=== PATIENT | male | born 1935 | race Caucasian/White ===

== ENCOUNTER 2016-07-21 08:53 | Observation (INO) | payer OTHER ==
[~2016-07-21] VITALS: Ht 182.9 cm; Wt 126.1 kg
[~2016-07-21 08:53] MED LIST: ALLEGRA ALLERG180 MG PO; ALLEGRA180 MG PO; AMLODIPINE BESYL5 MG PO; ASPIRIN81 M1 PO; Ecotrin PO; Flomax PO; JALYN 0.5-0.41 EACH PO; LO-DOSE ASPIRIN81 M1 PO; MACROBID100 MG PO; MECLIZINE HCL12.5 M1 PO; MUCINEX1200 MG PO; Norvasc PO; PLAVIX75 MG PO; Vicodin,Lortab 5/500 PO; ZINC50 M1 PO; ZOCOR20 MG PO; Zocor PO
[2016-07-21 10:29] LABS: EOSINOPHIL (%) 1.5 % (0-5); EOSINOPHIL COUNT 0.1 K/uL (0-0.3); HEMATOCRIT 48.8 % (38.0-50.0); IMMATURE GRANULOCYTE (%) 1.2 % (0.0-0.7); IMMATURE GRANULOCYTE COUNT 0.1 K/uL; INSTRUMENT ABS NEUTROPHIL CT 6.7 K/uL; LYMPHOCYTE COUNT 1.7 K/uL (1.0-2.8); MCH 29.4 PG (29.0-34.0); MCHC 32.4 G/DL (30.0-36.0); MCV 90.7 FL (86-99); MEAN PLAT.VOLUME 9.9 uM^3 (9.0-12.4); MONOCYTE (%) 8.4 % (3-12); MONOCYTE COUNT 0.8 K/uL (0-0.8); NEUTROPHIL (%) 70.3 % (45-76); NEUTROPHIL COUNT 6.7 K/uL (1.8-6.4); PLATELET COUNT 248 K/uL (156-360); RBC DIS.WIDTH-CV 12.1 % (11.8-14.6); RBC DIS.WIDTH-SD 40.1 % (39-53); RED BLOOD COUNT 5.38 M/uL (4.00-5.50); WHITE BLOOD COUNT 9.5 K/uL (4.1-10.2)
[2016-07-21 10:39] LABS: INTER. NORMALIZED RATIO 1.1; PROTHROMBIN TIME 10.7 (9.2-11.2); PTT 29.6 (25-32)
[2016-07-21 10:43] LABS: CHLORIDE 102 mEq/L (99-109); POTASSIUM 4.8 mEq/L (3.7-5.4); SODIUM 138 mEq/L (136-147)
[2016-07-21 10:45] LABS: GLUCOSE 149 mg/dL (70-99)
[2016-07-21 10:46] LABS: ANION GAP 10 MEQ/L (2-14)
[2016-07-21 10:49] LABS: GFR ESTIMATE (CALCULATED) > 59 mL/min/
[2016-07-21 10:50] LABS: UREA NITROGEN (BUN) 17 mg/dL (9-23)
[2016-07-21 10:51] LABS: TROP-I INTERPRETATION NEGATIVE; TROPONIN-I < 0.01 ng/mL (0.0-0.30)
[2016-07-21] MEDS ORDERED: PROSCAR5 MG PO (11:21)
[2016-07-21] MEDS ORDERED: FLOMAX0.4 MG PO (11:22)
[2016-07-21] MEDS ORDERED: COUGH DROPS1 EAC1 MM (11:23)
[2016-07-21] MEDS ORDERED: VICKS VAPOINHA1 EACH NS (11:24)
[2016-07-21 13:57] VITALS: BP 149/84
[2016-07-21 16:24] VITALS: BP 136/78
[2016-07-21 20:00] VITALS: BP 133/66
[2016-07-22] VITALS: BP 135/73
[2016-07-22 04:00] VITALS: BP 140/77
[2016-07-22 06:44] LABS: Estimated Average Glucose 128 mg/dL (70-123); HEMOGLOBIN A1c (GLYCOHEMOGLOB) 6.1 % HGB (Below 5.7)
[2016-07-22 07:24] VITALS: BP 145/81
== END 2016-07-22 10:38 | disposition home or self-care (01) ==
LOC: EME 08:53 → 5WEST 11:20 → EDOF 11:20 → 5WEST 13:48
PROVIDERS: Emergency Medicine; Hospitalist
DX: G45.9 Transient cerebral ischemic attack, unspecified (principal); I10 Essential (primary) hypertension; E78.5 Hyperlipidemia, unspecified; Z86.73 Personal history of transient ischemic attack (TIA), and cerebral infarction without residual deficits; Z87.891 Personal history of nicotine dependence; Z88.0 Allergy status to penicillin
CPT/HCPCS: 70450; 70551; 71010; 80048; 83036; 84484; 85025; 85610; 85730; 93005; 94660; 99281; 99285; G0378; J2060

== ENCOUNTER 2017-09-29 20:29 | Inpatient (IN) | payer OTHER ==
[~2017-09-29] VITALS: Ht 182.9 cm; Wt 127.6 kg
[2017-09-29 21:15] LABS: HEMATOCRIT 38.8 % (38.0-50.0); HEMOGLOBIN 12.7 G/DL (12.5-16.6); MCH 28.8 PG (29.0-34.0); MCHC 32.7 G/DL (30.0-36.0); PLATELET COUNT 169 K/uL (156-360); RBC DIS.WIDTH-CV 12.5 % (11.8-14.6); RBC DIS.WIDTH-SD 40.2 % (39-53); RED BLOOD COUNT 4.41 M/uL (4.00-5.50); WHITE BLOOD COUNT 16.7 K/uL (4.1-10.2)
[2017-09-29 21:24] LABS: ALBUMIN 3.4 G/DL (3.2-4.8); CHLORIDE 101 MEQ/L (99-109); DIRECT BILIRUBIN 0.8 mg/dL (0.0-0.3); POTASSIUM 4.2 MEQ/L (3.7-5.4); SODIUM 135 MEQ/L (136-147); TOTAL BILIRUBIN 2.2 MG/DL (0.0-1.0)
[2017-09-29 21:30] LABS: ALKALINE PHOSPHATASE 53 IU/L (3-129); ALT (GPT) 9 IU/L (3-49); AST (GOT) 19 IU/L (2-34); CREATININE 2.5 MG/DL (0.6-1.3); GFR ESTIMATE (CALCULATED) 27 mL/min/ (58.99-99999); GLUCOSE 186 mg/dL (70-99); TOTAL PROTEIN 5.9 G/DL (6.4-8.3); UREA NITROGEN (BUN) 36 mg/dL (9-23)
[2017-09-29 21:34] LABS: TROP-I INTERPRETATION NEGATIVE; TROPONIN-I 0.04 ng/mL (0.0-0.30)
[2017-09-29 22:05] VITALS: BP 143/67
[2017-09-30] VITALS (7 sets, daily range): BP systolic 109–159; BP diastolic 58–76
[2017-09-30 05:27] LABS: APPEARANCE CLOUDY ((CLEAR)); BILIRUBIN NEGATIVE; BLOOD MODERATE; COLOR AMBER ((YELLOW)); GLUCOSE (STRIP) NEGATIVE; KETONES NEGATIVE; LEUKOCYTES SMALL; NITRITE NEGATIVE; PROTEIN (STRIP) 100; SPECIFIC GRAVITY 1.024 (1.000-1.030); UROBILINOGEN 0.2 MG/DL (0.2-1.0)
[2017-09-30 05:44] LABS: RED BLOOD CELLS TNTC /HPF (0-5)
[2017-09-30 05:45] LABS: UCUL ADDED? YES
[2017-09-30 06:38] LABS: BASOPHIL (%) 0.1 % (0-1); EOSINOPHIL (%) 0 % (0-5); HEMOGLOBIN 12.3 G/DL (12.5-16.6); IMMATURE GRANULOCYTE (%) 0.6 % (0.0-0.7); LYMPHOCYTE (%) 7.9 % (15-42); LYMPHOCYTE COUNT 1.2 K/uL (1.0-2.8); MCH 28.8 PG (29.0-34.0); MCHC 32.4 G/DL (30.0-36.0); MONOCYTE (%) 8.8 % (3-12); MONOCYTE COUNT 1.4 K/uL (0-0.8); NEUTROPHIL (%) 82.6 % (45-76); PLATELET COUNT 180 K/uL (156-360); RBC DIS.WIDTH-CV 12.6 % (11.8-14.6); RBC DIS.WIDTH-SD 41.2 % (39-53); RED BLOOD COUNT 4.27 M/uL (4.00-5.50); WHITE BLOOD COUNT 15.7 K/uL (4.1-10.2)
[2017-09-30 06:57] LABS: CHLORIDE 101 MEQ/L (99-109); CREATININE 2.3 MG/DL (0.6-1.3); GFR ESTIMATE (CALCULATED) 29 mL/min/ (58.99-99999); GLUCOSE 155 mg/dL (70-99); POTASSIUM 4.4 MEQ/L (3.7-5.4); SODIUM 137 MEQ/L (136-147); UREA NITROGEN (BUN) 39 mg/dL (9-23)
[2017-10-01 05:32] VITALS: BP 155/80
[2017-10-01 07:51] VITALS: BP 164/89
[2017-10-01 07:53] LABS: BASOPHIL (%) 0.1 % (0-1); EOSINOPHIL (%) 0.1 % (0-5); HEMATOCRIT 38.3 % (38.0-50.0); HEMOGLOBIN 12.6 G/DL (12.5-16.6); IMMATURE GRANULOCYTE (%) 0.9 % (0.0-0.7); LYMPHOCYTE (%) 5.7 % (15-42); LYMPHOCYTE COUNT 0.9 K/uL (1.0-2.8); MCHC 32.9 G/DL (30.0-36.0); MONOCYTE (%) 9.4 % (3-12); MONOCYTE COUNT 1.5 K/uL (0-0.8); NEUTROPHIL (%) 83.8 % (45-76); NEUTROPHIL COUNT 13.1 K/uL (1.8-6.4); PLATELET COUNT 177 K/uL (156-360); RBC DIS.WIDTH-CV 12.5 % (11.8-14.6); RBC DIS.WIDTH-SD 40.6 % (39-53); RED BLOOD COUNT 4.35 M/uL (4.00-5.50); WHITE BLOOD COUNT 15.7 K/uL (4.1-10.2)
[2017-10-01 08:16] LABS: CHLORIDE 101 MEQ/L (99-109); GFR ESTIMATE (CALCULATED) 39 mL/min/ (58.99-99999); GLUCOSE 159 mg/dL (70-99); PHOSPHORUS 1.7 mg/dL (2.5-4.9); SODIUM 135 MEQ/L (136-147); UREA NITROGEN (BUN) 38 mg/dL (9-23); URIC ACID 8.3 mg/dL (3.1-9.2)
[2017-10-01 08:17] LABS: CREATININE 1.8 MG/DL (0.6-1.3)
[2017-10-01 12:19] VITALS: BP 155/78
[2017-10-01 17:08] VITALS: BP 132/61
[2017-10-01 19:56] VITALS: BP 143/75
[2017-10-02 00:21] VITALS: BP 147/76
[2017-10-02 06:50] LABS: BASOPHIL (%) 0.2 % (0-1); EOSINOPHIL (%) 0.1 % (0-5); HEMATOCRIT 36.6 % (38.0-50.0); HEMOGLOBIN 12.2 G/DL (12.5-16.6); IMMATURE GRANULOCYTE (%) 0.7 % (0.0-0.7); LYMPHOCYTE (%) 6.2 % (15-42); MCH 29.5 PG (29.0-34.0); MCHC 33.3 G/DL (30.0-36.0); MCV 88.6 FL (86-99); MONOCYTE (%) 9.3 % (3-12); MONOCYTE COUNT 1.6 K/uL (0-0.8); NEUTROPHIL (%) 83.5 % (45-76); PLATELET COUNT 186 K/uL (156-360); RBC DIS.WIDTH-CV 12.7 % (11.8-14.6); RBC DIS.WIDTH-SD 41.5 % (39-53); RED BLOOD COUNT 4.13 M/uL (4.00-5.50); WHITE BLOOD COUNT 16.7 K/uL (4.1-10.2)
[2017-10-02 07:23] LABS: CHLORIDE 102 MEQ/L (99-109); CREATININE 1.6 MG/DL (0.6-1.3); GFR ESTIMATE (CALCULATED) 44 mL/min/ (58.99-99999); GLUCOSE 160 mg/dL (70-99); POTASSIUM 4.1 MEQ/L (3.7-5.4); SODIUM 138 MEQ/L (136-147); UREA NITROGEN (BUN) 41 mg/dL (9-23)
[2017-10-02 07:53] VITALS: BP 139/73
[2017-10-02 11:47] VITALS: BP 156/78
[2017-10-02 16:17] VITALS: BP 134/97
[2017-10-02 19:37] VITALS: BP 133/88
[2017-10-02 23:09] VITALS: BP 128/80
[2017-10-03 05:26] LABS: BASOPHIL (%) 0.2 % (0-1); EOSINOPHIL COUNT 0.1 K/uL (0-0.3); HEMATOCRIT 35.4 % (38.0-50.0); HEMOGLOBIN 11.5 G/DL (12.5-16.6); IMMATURE GRANULOCYTE (%) 0.9 % (0.0-0.7); LYMPHOCYTE (%) 10.1 % (15-42); LYMPHOCYTE COUNT 1.3 K/uL (1.0-2.8); MCH 28.8 PG (29.0-34.0); MCHC 32.5 G/DL (30.0-36.0); MCV 88.5 FL (86-99); MONOCYTE (%) 11.8 % (3-12); MONOCYTE COUNT 1.5 K/uL (0-0.8); PLATELET COUNT 206 K/uL (156-360); RBC DIS.WIDTH-CV 12.7 % (11.8-14.6); RBC DIS.WIDTH-SD 41.7 % (39-53); WHITE BLOOD COUNT 13.1 K/uL (4.1-10.2)
[2017-10-03 05:54] LABS: CHLORIDE 104 MEQ/L (99-109); CREATININE 1.8 MG/DL (0.6-1.3); GFR ESTIMATE (CALCULATED) 39 mL/min/ (58.99-99999); GLUCOSE 128 mg/dL (70-99); POTASSIUM 3.8 MEQ/L (3.7-5.4); SODIUM 139 MEQ/L (136-147); UREA NITROGEN (BUN) 40 mg/dL (9-23)
[2017-10-03 07:41] VITALS: BP 163/83
[2017-10-03 07:51] VITALS: BP 158/88
[2017-10-03 15:43] VITALS: BP 158/82
[2017-10-03 23:34] VITALS: BP 148/79
[2017-10-04] VITALS (7 sets, daily range): BP systolic 139–173; BP diastolic 68–92
[2017-10-04 06:11] LABS: BASOPHIL (%) 0.4 % (0-1); BASOPHIL COUNT 0.1 K/uL (0-0.1); EOSINOPHIL (%) 2.1 % (0-5); EOSINOPHIL COUNT 0.3 K/uL (0-0.3); HEMATOCRIT 33.5 % (38.0-50.0); HEMOGLOBIN 11.1 G/DL (12.5-16.6); IMMATURE GRANULOCYTE (%) 1.7 % (0.0-0.7); LYMPHOCYTE (%) 11.5 % (15-42); LYMPHOCYTE COUNT 1.4 K/uL (1.0-2.8); MCH 29.1 PG (29.0-34.0); MCHC 33.1 G/DL (30.0-36.0); MCV 87.9 FL (86-99); MONOCYTE (%) 12.7 % (3-12); MONOCYTE COUNT 1.6 K/uL (0-0.8); NEUTROPHIL (%) 71.6 % (45-76); NEUTROPHIL COUNT 8.7 K/uL (1.8-6.4); PLATELET COUNT 257 K/uL (156-360); RBC DIS.WIDTH-SD 42.2 % (39-53); RED BLOOD COUNT 3.81 M/uL (4.00-5.50); WHITE BLOOD COUNT 12.2 K/uL (4.1-10.2)
[2017-10-04 06:38] LABS: CHLORIDE 105 MEQ/L (99-109); CREATININE 1.6 MG/DL (0.6-1.3); GFR ESTIMATE (CALCULATED) 44 mL/min/ (58.99-99999); GLUCOSE 120 mg/dL (70-99); POTASSIUM 3.9 MEQ/L (3.7-5.4); SODIUM 137 MEQ/L (136-147); UREA NITROGEN (BUN) 36 mg/dL (9-23)
[2017-10-05 07:05] LABS: BASOPHIL (%) 0.6 % (0-1); BASOPHIL COUNT 0.1 K/uL (0-0.1); EOSINOPHIL (%) 2.8 % (0-5); EOSINOPHIL COUNT 0.3 K/uL (0-0.3); HEMATOCRIT 34.1 % (38.0-50.0); HEMOGLOBIN 11.2 G/DL (12.5-16.6); IMMATURE GRANULOCYTE (%) 4.8 % (0.0-0.7); LYMPHOCYTE (%) 12.3 % (15-42); LYMPHOCYTE COUNT 1.4 K/uL (1.0-2.8); MCH 29.2 PG (29.0-34.0); MCHC 32.8 G/DL (30.0-36.0); MCV 88.8 FL (86-99); MONOCYTE (%) 12.6 % (3-12); MONOCYTE COUNT 1.5 K/uL (0-0.8); NEUTROPHIL (%) 66.9 % (45-76); NEUTROPHIL COUNT 7.8 K/uL (1.8-6.4); PLATELET COUNT 326 K/uL (156-360); RBC DIS.WIDTH-CV 13.2 % (11.8-14.6); RBC DIS.WIDTH-SD 42.9 % (39-53); RED BLOOD COUNT 3.84 M/uL (4.00-5.50); WHITE BLOOD COUNT 11.6 K/uL (4.1-10.2)
[2017-10-05 07:25] LABS: CHLORIDE 103 MEQ/L (99-109); CREATININE 1.3 MG/DL (0.6-1.3); GFR ESTIMATE (CALCULATED) 56 mL/min/ (58.99-99999); GLUCOSE 133 mg/dL (70-99); POTASSIUM 3.9 MEQ/L (3.7-5.4); SODIUM 137 MEQ/L (136-147); UREA NITROGEN (BUN) 28 mg/dL (9-23)
[2017-10-05 08:32] VITALS: BP 160/92
[2017-10-05 11:08] VITALS: BP 145/66
[2017-10-05] MEDS ORDERED: DOXYCYCLINE HY100 M3 PO ×2 (11:42→16:44)
[2017-10-05] MEDS ORDERED: OLANZAPINE5 MG PO ×2 (11:50→16:44)
== END 2017-10-05 16:05 | disposition home or self-care (01) | DRG 71 ==
LOC: 2EAST 20:29 → ENRESERV 20:30 → 3EAST 20:40 → 2SOUTH 20:40 → ENRESERV 21:41 → 3EAST 21:50
PROVIDERS: Hospitalist; Internal Medicine Nephrology
DX: G93.41 Metabolic encephalopathy (principal); N20.2 Calculus of kidney with calculus of ureter; N39.0 Urinary tract infection, site not specified; E78.5 Hyperlipidemia, unspecified; Z86.73 Personal history of transient ischemic attack (TIA), and cerebral infarction without residual deficits; N28.1 Cyst of kidney, acquired; N18.3 Chronic kidney disease, stage 3 (moderate); I10 Essential (primary) hypertension; Z88.0 Allergy status to penicillin; R50.9 Fever, unspecified
CPT/HCPCS: 70450; 71045; 74420; 76770; 80048; 80053; 81003; 82140; 82248; 82365 90; 83605; 83735; 84100; 84484; 84550; 85025; 85027; 87040; 87077; 87086; 87186; 93005; 94660; 94799; 97530 GO; 97530 GP; C1758; C2625; J0131; J0330; J0690; J0692; J1200; J1630; J1644; J2250; J2405; J3010; J3370; J7030

== ENCOUNTER → 2017-09-29 | Day surgery (SDC) | payer OTHER ==
[~2017-09-29] VITALS: Ht 182.9 cm; Wt 126.1 kg
[~2017-09-29] MED LIST changes: +CIPRO500 MG PO; +COUGH DROPS1 EAC1 MM; +ENDOCET 5-3251 EACH PO; +FLOMAX0.4 MG PO; +PROSCAR5 MG PO; +VICKS VAPOINHA1 EACH NS; +ZINC50 M2 PO
[2017-09-29 12:47] VITALS: BP 159/83
== END | disposition home or self-care (01) ==
LOC: SDC 11:40
DX: N20.1 Calculus of ureter (principal); R50.82 Postprocedural fever; E78.5 Hyperlipidemia, unspecified; N40.0 Benign prostatic hyperplasia without lower urinary tract symptoms; I12.9 Hypertensive chronic kidney disease with stage 1 through stage 4 chronic kidney disease, or unspecified chronic kidney disease; N18.3 Chronic kidney disease, stage 3 (moderate); Z86.73 Personal history of transient ischemic attack (TIA), and cerebral infarction without residual deficits; Z87.891 Personal history of nicotine dependence; Z88.0 Allergy status to penicillin
CPT/HCPCS: 82365 90; 93005; C1758; C2625; J0131; J0330; J0690; J2250; J2405; J3010